=== PATIENT | male | born 1995 | race Caucasian/White ===

== ENCOUNTER 2018-12-01 18:54 | Emergency (ER) | payer SELFPAY ==
--- NOTE | 2018-12-01 20:13 | EDPHYS ---
Physician Documentation [facility] Name: Antonio Manuel Age: 23 yrs Sex: Male : 1995 Arrival Date: 12/01/2018 Time: 18:58 Bed 17 Private MD: None, None ED Physician Pa Monahan HPI: 12/01 20:07 This 23 yrs old Male presents to ER via Ambulatory with complaints of jr8 Headache, Cough, Vomiting. 20:07 Patient stated that he has has a one week history of cough, n/v, headache, weakness jr8 feeling. Family has been sick around him with similar symptoms. Not getting better . Severity of symptoms: At their worst the symptoms were mild in the emergency department the symptoms are unchanged. The patient has not experienced similar symptoms in the past. The patient has not recently seen a physician. Historical: - Allergies: 19:10 No Known Allergies; sg - Home Meds: 19:10 None [Active]; sg - PMHx: 19:10 None; sg - PSHx: 19:10 None; sg - Immunization history:: Adult Immunizations not up to date. - Social history:: Smoking status: Patient uses tobacco products. - Ebola Screening: : Patient negative for fever greater than or equal to 101.5 degrees Fahrenheit, and additional compatible Ebola Virus Disease symptoms Patient denies exposure to infectious person Patient denies travel to an Ebola-affected area in the 21 days before illness onset No symptoms or risks identified at this time. ROS: 20:07 Eyes: Negative for injury, pain, redness, and discharge, Neck: Negative for injury, jr8 pain, and swelling, Cardiovascular: Negative for chest pain, palpitations, and edema, Back: Negative for injury and pain, MS/Extremity: Negative for injury and deformity, Skin: Negative for injury, rash, and discoloration. 20:07 ENT: Positive for rhinorrhea, sore throat. 20:07 Respiratory: Positive for cough, Negative for dyspnea on exertion, shortness of breath, sputum production, wheezing. 20:07 Neuro: Positive for headache. Exam: 20:11 Eyes: Pupils equal round and reactive to light, extra-ocular motions intact. Lids and jr8 lashes normal. Conjunctiva and sclera are non-icteric and not injected. Cornea within normal limits. Periorbital areas with no swelling, redness, or edema. Neck: Trachea midline, no thyromegaly or masses palpated, and no cervical lymphadenopathy. Supple, full range of motion without nuchal rigidity, or vertebral point tenderness. No Meningismus. Cardiovascular: Regular rate and rhythm with a normal S1 and S2. No gallops, murmurs, or rubs. Normal PMI, no JVD. No pulse deficits. Respiratory: Lungs have equal breath sounds bilaterally, clear to auscultation and percussion. No rales, rhonchi or wheezes noted. No increased work of breathing, no retractions or nasal flaring. Abdomen/GI: Soft, non-tender, with normal bowel sounds. No distension or tympany. No guarding or rebound. No evidence of tenderness throughout. Back: No spinal tenderness. No costovertebral tenderness. Full range of motion. Skin: Warm, dry with normal turgor. Normal color with no rashes, no lesions, and no evidence of cellulitis. MS/ Extremity: Pulses equal, no cyanosis. Neurovascular intact. Full, normal range of motion. Neuro: Awake and alert, GCS 15, oriented to person, place, time, and situation. Cranial nerves II-XII grossly intact. Motor strength 5/5 in all extremities. Sensory grossly intact. Cerebellar exam normal. Normal gait. 20:11 ENT: Exam is negative for earache, ear discharge, TM abnormalities, nasal discharge, Mouth: Lips: moist, Oral mucosa: pink and intact, moist, Gums: pink, Tongue: is moist, Posterior pharynx: Airway: patent, Tonsils: are normal in appearance, no enlargement, no erythema, no exudate, no ulcerations, Uvula: midline, non-edematous, no erythema, swelling, is not appreciated, erythema, that is mild. Vital Signs: 19:10 BP 157 / 96; Pulse 98; Resp 16; Temp 98.6; Pulse Ox 100% on R/A; Pain 6/10; sg 20:23 BP 142 / 79; Pulse 83; Resp 19; Pulse Ox 100% on R/A; Pain 6/10; ed1 MDM: 19:21 Patient medically screened. jr8 20:11 Data reviewed: vital signs, nurses notes, lab test result(s), Flu: negative and as a jr8 result, I will discharge patient. Data interpreted: Pulse oximetry: on room air is 100 %. Interpretation: normal. Counseling: I had a detailed discussion with the patient and/or guardian regarding: the historical points, exam findings, and any diagnostic results supporting the discharge/admit diagnosis, lab results, the need for outpatient follow up, a family practitioner, to return to the emergency department if symptoms worsen or persist or if there are any questions or concerns that arise at home. 12/01 19:14 Order name: Flu; Complete Time: 20:01 sg Administered Medications: 20:22 Drug: Tussionex Pennkinetic ER 5 ml Route: PO; ed1 20:22 Follow up: Response: Medication administered at discharge. ed1 20:22 Drug: Zofran 4 mg Route: PO; ed1 20:22 Follow up: Response: Medication administered at discharge. ed1 Disposition: 12/02 07:10 Co-signature as Attending Physician, Pa Monahan MD I agree with the assessment and tw4 plan of care. Disposition: 12/01/18 20:12 Discharged to Home. Impression: Acute upper respiratory infection, unspecified. - Condition is Stable. - Discharge Instructions: Upper Respiratory Infection, Adult. - Prescriptions for Zofran 4 mg Oral Tablet - take 1 tablet by ORAL route every 8 hours As needed; 20 tablet. Tessalon Perles 100 mg Oral Capsule - take 1 capsule by ORAL route every 8 hours As needed; 15 capsule. Guaifenesin AC 10- 100 mg/5 mL Oral Liquid - take 10 milliliter by ORAL route every 4 hours As needed; 240 milliliter. - Work release form, Medication Reconciliation Form, Thank You Letter, Antibiotic Education, Prescription Opioid Use form. - Follow up: Private Physician; When: 2 - 3 days; Reason: Recheck today's complaints, Continuance of care, Re-evaluation by your physician. - Problem is new. - Symptoms have improved. Signatures: Dispatcher [employer] EDMS Loi Mcknight RN RN Melissa Campa RN RN ed1 Jorge Luis Oden PA PA jr8 Pa Monahan MD MD tw4 Corrections: (The following items were deleted from the chart) 12/01 20:24 20:12 12/01/2018 20:12 Discharged to Home. Impression: Acute upper respiratory ed1 infection, unspecified. Condition is Stable. Forms are Medication Reconciliation Form, Thank You Letter, Antibiotic Education, Prescription Opioid Use. Follow up: Private Physician; When: 2 - 3 days; Reason: Recheck today's complaints, Continuance of care, Re-evaluation by your physician. Problem is new. Symptoms have improved. jr8
--- NOTE | 2018-12-01 20:13 | ER ---
Nurse's Notes [facility] Name: Antonio Manuel Age: 23 yrs Sex: Male : 1995 Arrival Date: 12/01/2018 Time: 18:58 Bed 17 Private MD: None, None Diagnosis: Acute upper respiratory infection, unspecified Presentation: 12/01 19:12 Presenting complaint: Patient states: Chills, body aches and vomiting x 1 week now, sg reports entire household has had the same symptoms. Transition of care: patient was not received from another setting of care. Onset of symptoms was December 01, 2018. Risk Assessment: Do you want to hurt yourself or someone else? Patient reports no desire to harm self or others. Initial Sepsis Screen: Does the patient meet any 2 criteria? No. Patient's initial sepsis screen is negative. Does the patient have a suspected source of infection? No. Patient's initial sepsis screen is negative. Care prior to arrival: None. 19:12 Method Of Arrival: Ambulatory sg 19:12 Acuity: SHAUNA 3 sg Historical: - Allergies: 19:10 No Known Allergies; sg - Home Meds: 19:10 None [Active]; sg - PMHx: 19:10 None; sg - PSHx: 19:10 None; sg - Immunization history:: Adult Immunizations not up to date. - Social history:: Smoking status: Patient uses tobacco products. - Ebola Screening: : Patient negative for fever greater than or equal to 101.5 degrees Fahrenheit, and additional compatible Ebola Virus Disease symptoms Patient denies exposure to infectious person Patient denies travel to an Ebola-affected area in the 21 days before illness onset No symptoms or risks identified at this time. Screenin:39 Abuse screen: Denies threats or abuse. Denies injuries from another. Nutritional ed1 screening: No deficits noted. Tuberculosis screening: No symptoms or risk factors identified. Fall Risk None identified. Assessment: 19:39 General: Appears uncomfortable, Behavior is calm, cooperative. Pain: Complains of pain ed1 in head Pain currently is 6 out of 10 on a pain scale. Quality of pain is described as aching, throbbing, Pain began 1 day ago. Is continuous. Neuro: Level of Consciousness is awake, alert, obeys commands, Oriented to person, place, time, situation, Reports headache in entire frontal area. Cardiovascular: Denies chest pain, Heart tones S1 S2 present. Respiratory: Reports cough that is productive, persistent Airway is patent Respiratory effort is even, unlabored, Respiratory pattern is regular, symmetrical, Breath sounds are clear bilaterally. GI: Abdomen is non-distended, Bowel sounds present X 4 quads. Abd is soft and non tender X 4 quads. Reports vomiting after coughing Patient currently denies diarrhea, nausea. : No signs and/or symptoms were reported regarding the genitourinary system. EENT: Throat is reddened. Derm: Skin is intact, is healthy with good turgor, Skin is dry, Skin is normal, Skin temperature is warm. Musculoskeletal: Circulation, motion, and sensation intact. Range of motion: intact in all extremities. 20:23 Reassessment: Patient appears in no apparent distress at this time. No changes from ed1 previously documented assessment. Patient and/or family updated on plan of care and expected duration. Pain level reassessed. Patient is alert, oriented x 3, equal unlabored respirations, skin warm/dry/pink. Vital Signs: 19:10 BP 157 / 96; Pulse 98; Resp 16; Temp 98.6; Pulse Ox 100% on R/A; Pain 6/10; sg 20:23 BP 142 / 79; Pulse 83; Resp 19; Pulse Ox 100% on R/A; Pain 6/10; ed1 ED Course: 18:58 Patient arrived in ED. mr 18:58 None, None is Private Physician. mr 19:10 Arm band placed on. sg 19:13 Triage completed. sg 19:21 Jorge Luis Oden PA is [facility]. jr8 19:21 Pa Monahan MD is Attending Physician. jr8 19:39 Melissa Campa, IGGY is Primary Nurse. ed1 19:39 Patient has correct armband on for positive identification. Placed in gown. Bed in low ed1 position. Call light in reach. Adult w/ patient. Pulse ox on. NIBP on. 20:23 No provider procedures requiring assistance completed. Patient did not have IV access ed1 during this emergency room visit. Administered Medications: 20:22 Drug: Tussionex Pennkinetic ER 5 ml Route: PO; ed1 20:22 Follow up: Response: Medication administered at discharge. ed1 20:22 Drug: Zofran 4 mg Route: PO; ed1 20:22 Follow up: Response: Medication administered at discharge. ed1 Outcome: 20:12 Discharge ordered by . cassidy 20:23 Discharged to home ambulatory, with family. ed1 20:23 Condition: good 20:23 Discharge instructions given to patient, Instructed on discharge instructions, follow up and referral plans. medication usage, Demonstrated understanding of instructions, follow-up care, medications, Prescriptions given X 3. 20:24 Patient left the ED. ed1 Signatures: Loi Mcknight, RN RN Betty Hanks Erika RN RN ed1 Jorge Luis Oedn PA PA jrBrandin
[2018-12-01] MEDS ORDERED: ONDANSETRON 4 MG (ODT) TAB ONE (20:30)
[2018-12-01] MEDS ORDERED: HYDROCODONE/CHLORPHEN 5 ML/OSYR ONE (20:31)
== END 2018-12-01 20:24 | disposition home or self-care (01) ==
LOC: ER 18:54
DX: J06.9 Acute upper respiratory infection, unspecified (principal); Z72.0 Tobacco use
CPT/HCPCS: 87804; 99283

== ENCOUNTER 2020-01-05 19:05 | Emergency (ER) | payer SELFPAY ==
[2020-01-05] MEDS ORDERED: NA CHLORIDE 0.9% 2,000 ML ONE (20:16)
[2020-01-05] MEDS ORDERED: THIAMINE 200 MG/2 ML INJ ONE (20:16)
[2020-01-05] MEDS ORDERED: FOLIC ACID 5 MG/ML VIAL ONE (20:17)
[2020-01-05] MEDS ORDERED: MULTIVITAMINS 10 ML VIAL (INJ) IV ONE (20:17)
[2020-01-05 20:44] LABS: Absolute Lymphocytes (CBC) 1.5 K/uL (0.7-4.9); Hematocrit 45.8 % (39.6-49.0); Lymphocytes % 29.2 % (15.3-44.8); RBC Red Blood Cell Count 4.64 M/uL (4.33-5.43)
--- NOTE | 2020-01-05 21:06 | RAD REPORT ---
EXAM DESCRIPTION: CT - Stone Protocol - 01/05/2020 8:20 pm CLINICAL HISTORY: FLANK PAIN COMPARISON: Head C Spine Cap W Con dated 04/09/2016 TECHNIQUE: Axial 5 mm thick images were obtained without oral or IV contrast. The [id number] span s the entirety of the system including uppermost abdomen and lung bases. All CT scans are performed using dose optimization technique as appropriate and may include automated exposure control or mA/KV adjustment according to patient size. FINDINGS: No hydronephrosis is present and no obstructing ureteral calculi. No suspicious renal mass es. Isodense masses and pyelonephritis are not excluded on a stone protocol CT scan. No significant a drenal finding. No urinary bladder suspicious finding. Liver shows mild borderline fatty infiltration. No focal liver lesion. No splenomegaly or focal splen ic finding. No pancreatic abnormality identified. No gallbladder or biliary tree abnormality identifi ed. No suspicious bowel findings. Appendix is normal. No hernia, mass or bulky lymphadenopathy noted. No free air, free fluid or inflammatory stranding. No significant bony abnormality. IMPRESSION: Negative CT stone protocol study. Isodense masses and pyelonephritis are not excluded on stone protocol technique. Borderline to mild fatty infiltration of the liver.
[2020-01-05 21:15] LABS: BUN Blood Urea Nitrogen 4 mg/dL (7-18); Bicarbonate 30 mmol/L (21-32); Glucose Level 108 mg/dL (74-106); Potassium 3.9 mmol/L (3.5-5.1); Sodium Level 141 mmol/L (136-145)
--- NOTE | 2020-01-05 22:21 | EDPHYS ---
Physician Documentation [facility] Name: Antonio Manuel Age: 24 yrs Sex: Male : 1995 Arrival Date: 01/05/2020 Time: 19:08 Bed 19 Private MD: ED Physician Jayy Marrero HPI: 01/04 20:11 This 24 yrs old Male presents to ER via Ambulatory with complaints of Flank kb Pain, alcohol poisoning. 20:11 The patient complains of pain in the left flank. The pain does not radiate. Onset: The kb symptoms/episode began/occurred 2 hour(s) ago. Modifying factors: The symptoms are alleviated by nothing. the symptoms are aggravated by nothing. Associated signs and symptoms: The patient has no apparent associated signs or symptoms. Severity of pain: At its worst the pain was moderate in the emergency department the pain is unchanged. The patient has not experienced similar symptoms in the past. The patient has not recently seen a physician. Pt reports left flank pain that started a couple of hours [employer]. States he thinks it is due to alcohol poisoning because he has been drinking 12-24 beers a day since he was 12. . Historical: - Allergies: 19:33 No Known Allergies; ca1 - Home Meds: 19:33 None [Active]; ca1 - PMHx: 19:33 None; ca1 - PSHx: 19:33 None; ca1 - Immunization history:: Adult Immunizations not up to date. - Social history:: Smoking status: Patient reports the use of cigarette tobacco products, smokes two packs cigarettes per day. Patient uses alcohol, patient/guardian reports chronic longstanding heavy alcohol consumption. ROS: 20:10 Constitutional: Negative for fever, chills, and weight loss, Cardiovascular: Negative kb for chest pain, palpitations, and edema, Respiratory: Negative for shortness of breath, cough, wheezing, and pleuritic chest pain, Abdomen/GI: Negative for abdominal pain, nausea, vomiting, diarrhea, and constipation, : Negative for injury, bleeding, discharge, and swelling, MS/Extremity: Negative for injury and deformity, Skin: Negative for injury, rash, and discoloration, Neuro: Negative for headache, weakness, numbness, tingling, and seizure. 20:10 Back: Positive for flank pain, on the left. Exam: 20:11 Constitutional: This is a well developed, well nourished patient who is awake, alert, kb and in no acute distress. Head/Face: Normocephalic, atraumatic. Chest/axilla: Normal chest wall appearance and motion. Nontender with no deformity. No lesions are appreciated. Cardiovascular: Regular rate and rhythm with a normal S1 and S2. No gallops, murmurs, or rubs. Normal PMI, no JVD. No pulse deficits. Respiratory: Lungs have equal breath sounds bilaterally, clear to auscultation and percussion. No rales, rhonchi or wheezes noted. No increased work of breathing, no retractions or nasal flaring. Back: No spinal tenderness. No costovertebral tenderness. Full range of motion. Skin: Warm, dry with normal turgor. Normal color with no rashes, no lesions, and no evidence of cellulitis. MS/ Extremity: Pulses equal, no cyanosis. Neurovascular intact. Full, normal range of motion. Neuro: Awake and alert, GCS 15, oriented to person, place, time, and situation. Cranial nerves II-XII grossly intact. Motor strength 5/5 in all extremities. Sensory grossly intact. Cerebellar exam normal. Normal gait. 20:11 Abdomen/GI: Inspection: abdomen appears normal, Bowel sounds: normal, in all quadrants, Palpation: soft, in all quadrants, mild abdominal tenderness, in the left upper quadrant and left lower quadrant. Vital Signs: 19:29 BP 137 / 107; Pulse 108; Resp 17 S; Temp 98.4(TE); Pulse Ox 98% on R/A; Weight 68.04 kg ca1 (R); Height 5 ft. 11 in. (180.34 cm) (R); Pain 7/10; 21:00 BP 118 / 97; Pulse 103; Resp 16; Pulse Ox 99% ; rr5 21:49 BP 115 / 78; Pulse 97; Resp 17; Pulse Ox 99% ; rr5 22:30 BP 121 / 70; Pulse 90; Resp 16; Temp 98; Pulse Ox 99% ; rr5 19:29 Body Mass Index 20.92 (68.04 kg, 180.34 cm) ca1 MDM: 19:41 Patient medically screened. kb 20:10 Data reviewed: vital signs, nurses notes. Data interpreted: Pulse oximetry: on room air kb is 98 %. Interpretation: normal. 21:43 Counseling: I had a detailed discussion with the patient and/or guardian regarding: the kb historical points, exam findings, and any diagnostic results supporting the discharge/admit diagnosis, lab results, radiology results, the need for outpatient follow up, a family practitioner, to return to the emergency department if symptoms worsen or persist or if there are any questions or concerns that arise at home. ED course: Pt has someone that will pick him up and stay with him. Labs and CT showing no acute findings except etoh. . 01/04 20:00 Order name: Basic Metabolic Panel; Complete Time: 21:16 kb 01/04 20:00 Order name: CBC with Diff; Complete Time: 20:48 kb 01/04 20:00 Order name: ETOH Level; Complete Time: 21:12 kb 01/04 20:00 Order name: CT Stone Protocol; Complete Time: 21:10 kb 01/04 20:00 Order name: IV Saline Lock; Complete Time: 20:33 kb 01/04 20:00 Order name: Labs collected and sent; Complete Time: 20:33 kb 01/04 21:14 Order name: Urine Dipstick-Ancillary (obtain specimen); Complete Time: 21:14 rr5 Administered Medications: 20:30 Drug: NS 0.9% 1000 ml Route: IV; Rate: 1000 ml; Site: right forearm; rr5 21:14 Follow up: Response: No adverse reaction; IV Status: Completed infusion; IV Intake: rr5 1000ml 20:34 Drug: Banana Bag - (NS 0.9% 1000 ml, foLIC Acid 1 mg, Thiamine 100 mg, Multivitamin 1 rr5 amp) Route: IV; Rate: calculated rate; Site: right forearm; 22:20 Follow up: Response: No adverse reaction; IV Status: Completed infusion; IV Intake: rr5 1000ml Disposition: 01/05 08:04 Co-signature as Attending Physician, Jayy Marrero MD I agree with the assessment and charleen plan of care. Disposition: 01/05/20 22:19 Discharged to Home. Impression: Alcohol use, unspecified with intoxication, Left flank pain. - Condition is Stable. - Discharge Instructions: Alcohol Intoxication, [id number], Flank Pain, Zqzq-[id number]. - Medication Reconciliation Form, Thank You Letter, Antibiotic Education, Prescription Opioid Use form. - Follow up: Emergency Department; When: As needed; Reason: Worsening of condition. Follow up: Private Physician; When: 2 - 3 days; Reason: Recheck today's complaints, Continuance of care, Re-evaluation by your physician. Signatures: Dispatcher [employer] EDMS PatriciaEva, POLICE DISPATCHER-C POLICE DISPATCHER-Jayy Martins MD MD cha Roque, Raymond RN RN rr5 Acob, IGGY Nguyễn RN ca1 Corrections: (The following items were deleted from the chart) 01/04 22:37 22:19 01/05/2020 22:19 Discharged to Home. Impression: Alcohol use, unspecified with rr5 intoxication; Left flank pain. Condition is Stable. Discharge Instructions: Alcohol Intoxication, [id number]-lu-[id number], Flank Pain, [id number]. Forms are Medication Reconciliation Form, Thank You Letter, Antibiotic Education, Prescription Opioid Use. Follow up: Emergency Department; When: As needed; Reason: Worsening of condition. Follow up: Private Physician; When: 2 - 3 days; Reason: Recheck today's complaints, Continuance of care, Re-evaluation by your physician. kb
--- NOTE | 2020-01-05 22:21 | ER ---
Nurse's Notes [facility] Name: Antonio Manuel Age: 24 yrs Sex: Male : 1995 Arrival Date: 01/05/2020 Time: 19:08 Bed 19 Private MD: Diagnosis: Alcohol use, unspecified with intoxication;Left flank pain Presentation: 01/04 19:29 Chief complaint: Parent and/or Guardian states: L flank pain today. Reports N/V. He ca1 drinks every day since 12 years old. Reports pain with urination. Coronavirus screen: Proceed with normal triage. Patient denies a cough. Patient denies shortness of breath or difficulty breathing. Patient denies measured and/or subjective temperature greater than 100.4F prior to today's visit. Patient denies travel on a cruise ship or to a country the [facility] currently lists as an affected area. Patient denies contact with known and/or suspected case of COVID-19. Ebola Screen: Patient negative for fever greater than or equal to 101.5 degrees Fahrenheit, and additional compatible Ebola Virus Disease symptoms Patient denies exposure to infectious person. Patient denies travel to an Ebola-affected area in the 21 days before illness onset. No symptoms or risks identified at this time. Initial Sepsis Screen: Does the patient meet any 2 criteria? No. Patient's initial sepsis screen is negative. Does the patient have a suspected source of infection? No. Patient's initial sepsis screen is negative. Risk Assessment: Do you want to hurt yourself or someone else? Patient reports no desire to harm self or others. Onset of symptoms was January 05, 2020. 19:29 Method Of Arrival: Ambulatory ca1 19:29 Acuity: SHAUNA 3 ca1 Historical: - Allergies: 19:33 No Known Allergies; ca1 - Home Meds: 19:33 None [Active]; ca1 - PMHx: 19:33 None; ca1 - PSHx: 19:33 None; ca1 - Immunization history:: Adult Immunizations not up to date. - Social history:: Smoking status: Patient reports the use of cigarette tobacco products, smokes two packs cigarettes per day. Patient uses alcohol, patient/guardian reports chronic longstanding heavy alcohol consumption. Screenin:00 Abuse screen: Denies threats or abuse. Denies injuries from another. Nutritional rr5 screening: No deficits noted. Tuberculosis screening: No symptoms or risk factors identified. Fall Risk IV access (20 points). Total Fu Fall Scale indicates No Risk (0-24 pts). Assessment: 20:00 General: Appears in no apparent distress. uncomfortable, Behavior is calm, cooperative, rr5 appropriate for age. 20:00 Pain: Complains of pain in left flank Pain Quality of pain is described as aching, Pain rr5 began gradually, Is intermittent. Neuro: Level of Consciousness is awake, alert, obeys commands, Oriented to person, place, time, situation. Cardiovascular: Capillary refill < 3 seconds Patient's skin is warm and dry. Respiratory: Airway is patent Respiratory effort is even, unlabored, Respiratory pattern is regular, symmetrical. GI: Abdomen is flat, Reports nausea, vomiting. : Reports pain in left flank(s). EENT: No signs and/or symptoms were reported regarding the EENT system. Derm: Skin is intact, is healthy with good turgor, Skin temperature is warm. Musculoskeletal: Capillary refill < 3 seconds, mild tremors noted. 21:00 Reassessment: Patient appears in no apparent distress at this time. Patient is alert, rr5 oriented x 3, equal unlabored respirations, skin warm/dry/pink. awaiting for results. 22:00 Reassessment: Patient appears in no apparent distress at this time. Patient is alert, rr5 oriented x 3, equal unlabored respirations, skin warm/dry/pink. review done, for discharge once IVF fluid consume. 22:30 Reassessment: Patient appears in no apparent distress at this time. Patient is alert, rr5 oriented x 3, equal unlabored respirations, skin warm/dry/pink. discharge instruction given and explained without complaints made. Patient states symptoms have improved. Vital Signs: 19:29 BP 137 / 107; Pulse 108; Resp 17 S; Temp 98.4(TE); Pulse Ox 98% on R/A; Weight 68.04 kg ca1 (R); Height 5 ft. 11 in. (180.34 cm) (R); Pain 7/10; 21:00 BP 118 / 97; Pulse 103; Resp 16; Pulse Ox 99% ; rr5 21:49 BP 115 / 78; Pulse 97; Resp 17; Pulse Ox 99% ; rr5 22:30 BP 121 / 70; Pulse 90; Resp 16; Temp 98; Pulse Ox 99% ; rr5 19:29 Body Mass Index 20.92 (68.04 kg, 180.34 cm) ca1 ED Course: 19:08 Patient arrived in ED. am2 19:32 Triage completed. ca1 19:33 Arm band placed on right wrist. ca1 19:35 Wilder Stevenson RN is Primary Nurse. rr5 19:41 Eva Patricia [facility]-C [facility]. kb 19:41 Jayy Marrero MD is Attending Physician. kb 20:00 Patient has correct armband on for positive identification. Bed in low position. Call rr5 light in reach. Pulse ox on. NIBP on. 20:20 CT Stone Protocol In Process Unspecified. EDMS 20:30 Inserted saline lock: 20 gauge in right forearm, using aseptic technique. Blood rr5 collected. 21:00 No provider procedures requiring assistance completed. rr5 22:30 IV discontinued, intact, bleeding controlled, No redness/swelling at site. Pressure rr5 dressing applied. Administered Medications: 20:30 Drug: NS 0.9% 1000 ml Route: IV; Rate: 1000 ml; Site: right forearm; rr5 21:14 Follow up: Response: No adverse reaction; IV Status: Completed infusion; IV Intake: rr5 1000ml 20:34 Drug: Banana Bag - (NS 0.9% 1000 ml, foLIC Acid 1 mg, Thiamine 100 mg, Multivitamin 1 rr5 amp) Route: IV; Rate: calculated rate; Site: right forearm; 22:20 Follow up: Response: No adverse reaction; IV Status: Completed infusion; IV Intake: rr5 1000ml Intake: 21:14 IV: 1000ml; Total: 1000ml. rr5 22:20 IV: 1000ml; Total: 2000ml. rr5 Outcome: 22:19 Discharge ordered by . kb 22:30 Discharged to home ambulatory. rr5 22:30 Condition: stable 22:30 Discharge instructions given to patient, Instructed on discharge instructions, follow up and referral plans. Demonstrated understanding of instructions, follow-up care. 22:37 Patient left the ED. rr5 Signatures: Dispatcher [employer] EDMS Eva Patricia FNP-C FNP-Ckb Moreno, Amanda am2 Wilder Stevenson RN RN rr5 Acob, Delma, RN RN ca1 Corrections: (The following items were deleted from the chart) 19:38 19:29 Pulse 108bpm; Resp 17bpm; Spontaneous; Pulse Ox 98% RA; Temp 98.4F Temporal; ca1 68.04 kg Reported; Height 5 ft. 11 in. Reported; BMI: 20.9; Pain 7/10; ca1
[2020-01-05 22:45] VITALS: TEMP 98.4
[2020-01-05 22:46] VITALS: O2SAT 99
[2020-01-05 22:47] VITALS: BP 115/78
== END 2020-01-05 22:37 | disposition home or self-care (01) ==
LOC: ER 19:05
DX: F10.129 Alcohol abuse with intoxication, unspecified (principal); F17.210 Nicotine dependence, cigarettes, uncomplicated
CPT/HCPCS: 36415; 74176; 76377; 80048; 80320; 85025; 96365; 96366; 99284; J3411; J7030

== ENCOUNTER 2021-07-31 10:28 | Emergency (ER) | payer SELFPAY ==
--- NOTE | 2021-07-31 12:54 | ER ---
Nurse's Notes [facility] Name: Antonio Manuel Age: 25 yrs Sex: Male : 1995 Arrival Date: 07/31/2021 Time: 10:31 Bed Waiting Private MD: Diagnosis: Presentation: 07/31 11:07 Chief complaint: Patient states: bloody emesis x 1 week. Pt reports that this has been ss occurring once a day. Coronavirus screen: Client denies travel out of the [place] in the last 14 days. Ebola Screen: Patient denies exposure to infectious person. Patient denies travel to an Ebola-affected area in the 21 days before illness onset. Initial Sepsis Screen: Does the patient meet any 2 criteria? No. Patient's initial sepsis screen is negative. Does the patient have a suspected source of infection? No. Patient's initial sepsis screen is negative. Risk Assessment: Do you want to hurt yourself or someone else? Patient reports no desire to harm self or others. Onset of symptoms was July 24, 2021. 11:07 Method Of Arrival: Ambulatory ss 11:07 Acuity: SHAUNA 3 ss Triage Assessment: 11:09 General: Appears in no apparent distress. comfortable, Behavior is calm, cooperative. ss Pain: Denies pain. Neuro: Level of Consciousness is awake, alert. Respiratory: Respiratory effort is even, unlabored, Respiratory pattern is regular, symmetrical. GI: Abdomen is non-distended, Reports nausea, vomiting, Patient currently denies abdominal pain. Derm: Skin is pink, warm \T\ dry. normal. Historical: - Allergies: 11:08 No Known Allergies; ss - Home Meds: 11:08 None [Active]; ss - PMHx: 11:08 None; ss - PSHx: 11:08 None; ss - Immunization history:: Client reports having NOT received the Covid vaccine. - Social history:: Smoking status: Patient reports the use of cigarette tobacco products, smokes one pack cigarettes per day. Assessment: 12:50 Reassessment: not in lobby when called. iw Vital Signs: 11:07 BP 117 / 78; Pulse 101; Resp 15; Temp 97.5(TE); Pulse Ox 100% on R/A; Weight 72.57 kg; ss Height 5 ft. 11 in. (180.34 cm); Pain 0/10; 11:07 Body Mass Index 22.32 (72.57 kg, 180.34 cm) ss ED Course: 10:31 Patient arrived in ED. as 11:08 Triage completed. ss 11:08 Arm band placed on right wrist. ss 12:50 Donna Henley, RN is Primary Nurse. iw Administered Medications: No medications were administered Outcome: 12:54 Patient left the ED. iw 12:54 Eloped from waiting room, Time discovered patient gone: July 31, 2021 at 12:54 iw Signatures: Kristine Quijano as Donna Henley, RN RN iw Jolanta Daniel, RN RN ss
[2021-07-31 12:59] VITALS: BP 117/78; TEMP 97.5; O2SAT 100
== END 2021-07-31 12:54 | disposition left against medical advice (07) ==
LOC: ER 10:28
DX: Z53.21 Procedure and treatment not carried out due to patient leaving prior to being seen by health care provider (principal)
CPT/HCPCS: 99281